=== PATIENT | male | born 1975 | race Caucasian/White ===

== ENCOUNTER 2022-12-19 09:20 | Emergency (ER) | payer OTHER, SELFPAY ==
--- NOTE | 2022-12-19 09:22 | ED.NAVMDI ---
HPI - Nausea/Vomiting/Diarrhea General Chief complaint: Nausea/Vomiting/Diarrhea Stated complaint: Diarrhea;Abdominal pain;Nausea Source: patient and RN notes reviewed Mode of arrival: ambulatory Limitations: no limitations History of Present Illness HPI Narrative: Patient is a 47-year-old male who presents to the [facility] the history of with complaints of nausea and diarrhea. Patient states that he developed diarrhea starting Sunday morning. He states that the diarrhea started after he had a weekend trip in [place]. He does not believe he ate anything abnormal or that would cause his symptoms. he denies abdominal pain. States that he developed some nausea last night without emesis. Denies recent fever. States that he has been able to keep down fluids but has not had much of an appetite. He denies urinary symptoms. Denies GI history. Related Data Home Medications Medication Instructions Recorded Confirmed cholecalciferol (vitamin D3) 50 50 mcg PO DAILY 05/18/21 12/19/22 mcg (2,000 unit) capsule mecobalamin (vitamin B12) 1,000 1,000 mcg PO DAILY 05/18/21 12/21/21 mcg chewable tablet qhpcbsel-jsxyiqmd-jukup acid 400 1 tablet PO DAILY 05/18/21 12/19/22 mcg-vit K 20 mcg-lycop 300 mcg tablet (Men's Multivitamin) zinc gluconate 30 mg tablet 30 mg PO DAILY 05/18/21 12/19/22 magnesium 200 mg tablet 200 mg PO DAILY 12/21/21 12/21/21 Allergies Allergy/AdvReac Type Severity Reaction Status Date / Time No Known Allergies Allergy Verified 12/19/22 09:38 Review of Systems Review of Systems: CONSTITUTIONAL: Denies fever, chills, or sweats. EYES: Denies visual changes, redness, or discharge. ENT: Denies otalgia and sore throat CARDIOVASCULAR: Denies chest pain, palpitations, or edema. RESPIRATORY: Denies cough or dyspnea. GASTROINTESTINAL: Denies abdominal pain and vomiting, but reports nausea and diarrhea. GENITOURINARY: Denies dysuria or hematuria. SKIN: Denies rash or itching. MUSCULOSKELETAL: Denies back pain, joint pain, or myalgia. NEUROLOGIC: Denies headache, numbness, or weakness. Pertinent positives per HPI. [facility] Past Medical History Medical History Allergies B12 deficiency Depression Erectile dysfunction Excessive cerumen in left ear canal History of depression HTN (hypertension) Mixed hyperlipidemia Obesity, Class II, BMI 35-39.9 Primary hypertension Prostate cancer screening Seasonal allergies Situational anxiety Somnolence Vitamin D deficiency Family History Family History Father Diabetes mellitus Grandparent Diabetes mellitus Grandparent Heart disease Grandparent Asthma Cerebrovascular accident Son Type 1 diabetes Social History Social History Smoking status: Never smoker Alcohol intake: current Alcohol use details: socially Substance use: never Substance use type: does not use Spiritual care concerns: No Agree to blood products: Yes Comments At the time of my signature, I reviewed and agree with the nursing past medical, surgical, social, and family history. There is no relevant family history pertinent to the patient complaint. Exam Narrative: GENERAL: This is a well-nourished, well-developed patient, in no apparent distress. HEAD: normocephalic, atraumatic. EYES: Sclera clear/white. Vision is grossly intact. EARS: External ears normal. Hearing grossly intact. NOSE: External nose normal with no obvious nasal discharge, nares without redness, no rhinorrhea. THROAT: Mucous membranes moist, posterior pharynx clear. NECK: Neck supple, non-tender without lymphadenopathy, masses or thyromegaly. CARDIOVASCULAR: Regular rate and rhythm without murmurs, gallops, or rubs. RESPIRATORY: Clear to auscultation. Breath sounds equal bilaterally. No wheezes,
[2022-12-19 09:25] VITALS: BP 138/89; PULSE 110; RESP 16; TEMP 36.4; O2SAT 99
== END 2022-12-19 09:49 | disposition home or self-care (01) ==
PROVIDERS: Emergency Provider Nurse Practitioner; PCP Physician Assistant
DX: A08.4 Viral intestinal infection, unspecified (principal); I10 Essential (primary) hypertension; E78.2 Mixed hyperlipidemia; E55.9 Vitamin D deficiency, unspecified; E53.8 Deficiency of other specified B group vitamins; E66.9 Obesity, unspecified; Z68.34 Body mass index [BMI] 34.0-34.9, adult
CPT/HCPCS: 99213; G0463

== ENCOUNTER 2023-04-18 06:11 | Day surgery (SDC) | payer OTHER, SELFPAY ==
[2023-03-16 10:29] VITALS: BMI 35.0
[2023-04-02 12:56] VITALS: BMI 35.2
[2023-04-18 06:47] VITALS: BP 149/93; PULSE 93; RESP 14; TEMP 36.4; O2SAT 99
--- NOTE | 2023-04-18 07:11 | PM.HPGS ---
History of Present Illness History of Present Illness Consent: Risks, benefits, and alternatives have been discussed and questions answered. Patient agrees to proceed with procedure. Chief complaint: Neoplasm Screeing Narrative: Arcenio Coats is a 48 year old male presents for screening colonoscopy. Patient's current weight appetite and bowel movements are normal. Patient denies abdominal pain. Family history noncontributory. Patient denies any blood in his stools. Review of Systems Review of Systems: Review of Systems noncontributory. [facility] Past Medical History Medical History Allergies Depression Erectile dysfunction History of depression Mixed hyperlipidemia Primary hypertension Seasonal allergies Family History Family History (Updated 12/27/22 @ 09:06 by Harmony Irwin PA-C) Father , Stroke, 2021 Diabetes mellitus Grandparent Diabetes mellitus Grandparent Heart disease Grandparent Asthma Cerebrovascular accident Son Type 1 diabetes Social History Social History Smoking status: Never smoker Alcohol intake: current Alcohol use details: socially Substance use: never Substance use type: does not use Living arrangements: alone Spiritual care concerns: No Agree to blood products: Yes Meds Home Medications and Allergies Home Medications Medication Instructions Recorded Confirmed Type cholecalciferol (vitamin D3) 50 50 mcg PO DAILY 05/18/21 04/18/23 History mcg (2,000 unit) capsule mecobalamin (vitamin B12) 1,000 1,000 mcg PO DAILY 05/18/21 04/18/23 History mcg chewable tablet kryirect-zalgwjbn-ckphq acid 400 1 tablet PO DAILY 05/18/21 04/18/23 History mcg-vit K 20 mcg-lycop 300 mcg tablet (Men's Multivitamin) zinc gluconate 30 mg tablet 30 mg PO DAILY 05/18/21 04/18/23 History magnesium 200 mg tablet 200 mg PO DAILY 12/21/21 04/18/23 History lisinopril 10 mg tablet 10 mg PO DAILY #90 tabs 04/13/22 04/18/23 Rx tadalafil 20 mg tablet See Rx Instructions .Route 11/17/22 04/18/23 Rx .COMPLEX #6 tabs Allergies Allergy/AdvReac Type Severity Reaction Status Date / Time No Known Allergies Allergy Verified 04/18/23 06:42 Vital Signs Vital Signs - 24 hr 04/18/23 06:47 Temperature 97.5 F L Pulse Rate 93 Respiratory Rate 14 Blood Pressure 149/93 H Pulse Oximetry 99 Oxygen Delivery Room Air Exam Narrative: Physical exam reveals patient to be alert. Vital signs stable. HEENT exam is unremarkable. Patient is anicteric. Lungs are clear to auscultation and percussion. Heart is without murmur or extra sounds. Abdominal exam bowel sounds are present soft nontender with no hepatosplenomegaly. Digital external rectal exam normal. Assessment and Plan Assessment and plan (1) Encounter for screening colonoscopy: Code(s): Z12.11 - Encounter for screening for malignant neoplasm of colon Status: Acute Assessment and Plan: Presents for initial screening colonoscopy. He appears to be at average risk for colon polyps.
--- NOTE | 2023-04-18 07:32 | P.PNAN_ITS ---
Anes - Initial Pre Proc Eval Procedure: Operation Date: 04/18/23 08:00 Proposed Procedures p Colonoscopy - Yves Mejia MD Date/Time: 04/18/23 07:32 Surgeon: Yves Mejia MD Pre Op Diagnosis: Neoplasm Screeing Patient Data Age: 48 Gender: M Height: 1.83 m Weight: 113.85 kg Last Vital Signs Temp 36.4 C L 04/18/23 06:47 Pulse 93 04/18/23 06:47 Resp 14 04/18/23 06:47 BP 149/93 H 04/18/23 06:47 Pulse Ox 99 04/18/23 06:47 O2 Del Method Room Air 04/18/23 06:47 Allergies Allergy/AdvReac Type Severity Reaction Status Date / Time No Known Allergies Allergy Verified 04/18/23 06:42 Home Medications Medication Instructions Recorded Confirmed Type cholecalciferol (vitamin D3) 50 50 mcg PO DAILY 05/18/21 04/18/23 History mcg (2,000 unit) capsule mecobalamin (vitamin B12) 1,000 1,000 mcg PO DAILY 05/18/21 04/18/23 History mcg chewable tablet fhmwwbxg-saaimnri-wxvzq acid 400 1 tablet PO DAILY 05/18/21 04/18/23 History mcg-vit K 20 mcg-lycop 300 mcg tablet (Men's Multivitamin) zinc gluconate 30 mg tablet 30 mg PO DAILY 05/18/21 04/18/23 History magnesium 200 mg tablet 200 mg PO DAILY 12/21/21 04/18/23 History lisinopril 10 mg tablet 10 mg PO DAILY #90 tabs 04/13/22 04/18/23 Rx tadalafil 20 mg tablet See Rx Instructions .Route 11/17/22 04/18/23 Rx .COMPLEX #6 tabs Patient hx anesthesia problems: none Family hx anesthesia problems: none Results Review: All pre-operative results and documents have been reviewed as part of the pre- operative evaluation. REPLACED BY [facility] Past Medical History Medical History Allergies Depression Erectile dysfunction History of depression Mixed hyperlipidemia Primary hypertension Seasonal allergies Family History Family History Father , Stroke, 2021 Diabetes mellitus Grandparent Diabetes mellitus Grandparent Heart disease Grandparent Asthma Cerebrovascular accident Son Type 1 diabetes Social History Social History Smoking status: Never smoker Alcohol intake: current Alcohol use details: socially Substance use: never Substance use type: does not use Living arrangements: alone Spiritual care concerns: No Agree to blood products: Yes Anes - Eval Final PreProcedure Day of Procedure 04/18/23 07:32 Patient weight: obese Heart: regular rate and rhythm Lungs: clear to auscultation Airway: Mallampati scale class II Neurological: alert and oriented Last oral intake: >/= 8 hours ASA classification: III Emergent: no Anesthetic plan: proceed Anesthesia type and monitoring: general GIVS and standard monitoring Results Review: All pre-operative results and documents have been reviewed as part of the pre- operative evaluation. Informed Consent: The patient's anesthetic plan and its attendant risks and benefits were discussed with the patient/family/POA. Questions were solicited and answers provided to the satisfaction of the patient/family/POA.
[2023-04-18] MEDS: LACTATED RINGERS 1,000 ML 150 ML IV CONT (07:35)
[2023-04-18 08:05] VITALS: BP 116/72; PULSE 79; RESP 16; O2SAT 100
[2023-04-18 08:15] VITALS: BP 124/82; PULSE 79; RESP 18; O2SAT 100
[2023-04-18 08:25] VITALS: BP 135/87; PULSE 85; RESP 20; O2SAT 100
--- NOTE | 2023-04-18 09:40 | WPDANESPN ---
Anes - Prog Note Post-Op Date/Time: 04/18/23 09:40 Cardiovascular status: normal Respiratory status: normal Airway patency: baseline Mental status: baseline Post-Op hydration status: normal Vital Signs: Last Vital Signs Temp 36.4 C L 04/18/23 06:47 Pulse 85 04/18/23 08:25 Resp 20 04/18/23 08:25 BP 135/87 04/18/23 08:25 Pulse Ox 100 04/18/23 08:25 O2 Del Method Room Air 04/18/23 08:25 Pain Score (VAS): 0 I/O: Intake & Output 04/17/23 04/18/23 04/18/23 23:59 07:59 15:59 Intake Total 700 Balance 700 Patient Feedback: Patient satisfied with anesthetic care.
== END 2023-04-18 08:35 | disposition home or self-care (01) ==
PROVIDERS: PCP Physician Assistant; Visit Provider Internal Medicine Gastroenterology
PROC: 0DJD8ZZ Inspection of Lower Intestinal Tract, Via Natural or Artificial Opening Endoscopic (ICD-10-PCS; CPT 45378; principal; 2023-04-18 08:00)
DX: Z12.11 Encounter for screening for malignant neoplasm of colon (principal); K64.8 Other hemorrhoids
CPT/HCPCS: 45378

== ENCOUNTER 2024-04-21 08:23 | Emergency (ER) | payer OTHER, SELFPAY ==
[2024-04-21 08:34] VITALS: BP 145/82; PULSE 103; RESP 16; TEMP 36.9; O2SAT 98
--- NOTE | 2024-04-21 08:47 | ED.GENADULT ---
HPI - General Adult General Chief complaint: Upper Respiratory Infection Stated complaint: Cough/Sore Throat Time Seen by Provider: 04/21/24 08:47 Source: patient, RN notes reviewed and old records reviewed Mode of arrival: ambulatory Limitations: no limitations History of Present Illness HPI narrative: 49 year old male who presents to [facility] care with complaints of sore throat for the past 5 days with intermittent cough which is productive, Patient reports that he has not had any known fevers. Patient reports no ear pain, denies any body aches or headaches, denies any nausea or vomiting or diarrhea.Patient has been taking Mucinex, DayQuil and Ibuprofen for his symptoms. MD complaint: sore throat, productive cough Onset (ago): day(s) (5) Severity: moderate Treatments prior to arrival: NSAID and other (Mucinex, DayQuil) Related Data Home Medications ?Medication ?Instructions ?Recorded ?Confirmed ?Last Taken ?Type cholecalciferol (vitamin D3) 50 50 mcg PO DAILY 05/18/21 04/21/24 04/14/23 History mcg (2,000 unit) capsule mecobalamin (vitamin B12) 1,000 1,000 mcg PO DAILY 05/18/21 04/21/24 04/15/23 History mcg chewable tablet sdfbdgmr-llitshfm-rqybf acid 400 1 tablet PO DAILY 05/18/21 04/21/24 04/15/23 History mcg-vit K 20 mcg-lycop 300 mcg tablet (Men's Multivitamin) zinc gluconate 30 mg tablet 30 mg PO DAILY 05/18/21 04/21/24 04/15/23 History Allergies Allergy/AdvReac Type Severity Reaction Status Date / Time No Known Allergies Allergy Verified 04/21/24 08:34 Review of Systems Review of Systems: CONSTITUTIONAL: Denies malaise, chills, sweats, or fever. EYES: Denies visual changes, redness, or discharge. ENT: Reports rhinorrhea, congestion, sinus pain, no otalgia and positive for sore throat. CARDIOVASCULAR: Denies chest pain, palpitations, or edema. RESPIRATORY: Reports productive cough.? Denies dyspnea. GASTROINTESTINAL: Denies abdominal pain, nausea, vomiting, diarrhea SKIN: Denies rash or itching. MUSCULOSKELETAL: Denies myalgia. NEUROLOGIC: Denies headache. All systems reviewed & are unremarkable except as noted in HPI and below PMFSH Past Medical History Medical History Mixed hyperlipidemia Seasonal allergies History of depression Primary hypertension Depression Allergies Erectile dysfunction Family History Family History Father , Stroke, 2021 Diabetes mellitus Grandparent Diabetes mellitus Grandparent Heart disease Grandparent Asthma Cerebrovascular accident Son Type 1 diabetes Social History Social History Smoking status: Never smoker Alcohol intake: current Alcohol use details: socially Substance use: never Substance use type: does not use Living arrangements: alone Spiritual care concerns: No Agree to blood products: Yes Comments At time of signature, agree with nursing past medical, surgical, social and family history. There is no relevant family history pertinent to the presenting complaint Exam Narrative: GENERAL: Well-appearing, well-nourished, and in no acute distress. HEAD: Normocephalic EYES: PERRLA, conjunctivae clear ENT: Nares clear, turbinates edematous and erythematous, clear discharge. Mucous membranes moist. TM pearly junior with dull light reflex bilaterally; no tragal tenderness. Oropharynx erythematous without lesions. Tonsils red enlarged and with white exudate, no drooling, no hoarseness, no trismus, uvula midline.some post nasal drainage NECK: Supple. lymphadenopathy CHEST: Clear to auscultation, breath sounds equal. No wheezing, rhonchi, rales, or stridor. No respiratory distress, speaks in full sentences.productive cough. SAO2 98% on room air HEART: Regular rate and rhythm. No murmur heard. SKIN: Warm, dry, no rash NEURO: Alert and oriented x3. PSYCH: Normal mood and affect Course Course Emergency Course: Patient is aware of diagnosis, understands and agrees to treatment plan.? Anticipatory guidance given.? Patient agrees to follow-up as directed and is aware of reasons to seek care at the emergency department. Portions of this record may have been created with voice recognition software Level of Care: Express Care Visit Vital Signs Vital signs: Vital Signs Temperature 36.9 C 04/21/24 08:34 Pulse Rate 103 H 04/21/24 08:34 Respiratory Rate 16 04/21/24 08:34 Blood Pressure 145/82 H 04/21/24 08:34 Pulse Oximetry 98 04/21/24 08:34 Temperature 36.9 C 04/21/24 08:34 Pulse Rate 103 H 04/21/24 08:34 Respiratory Rate 16 04/21/24 08:34 Blood Pressure 145/82 H 04/21/24 08:34 Pulse Oximetry 98 04/21/24 08:34 Reviewed Medical Decision Making Differential Diagnosis Differential Diagnosis: URI, cough, pharyngitis, strep pharyngitis, tonsillitis Medical Records Medical records reviewed: Yes I reviewed the external patient's medical records. Vital Signs Vital Signs: Vital Signs Temperature 36.9 C 04/21/24 08:34 Pulse Rate 103 H 04/21/24 08:34 Respiratory Rate 16 04/21/24 08:34 Blood Pressure 145/82 H 04/21/24 08:34 Pulse Oximetry 98 04/21/24 08:34 Temperature 36.9 C 04/21/24 08:34 Pulse Rate 103 H 04/21/24 08:34 Respiratory Rate 16 04/21/24 08:34 Blood Pressure 145/82 H 04/21/24 08:34 Pulse Oximetry 98 04/21/24 08:34 Lab Data Lab results reviewed: Yes I reviewed the patient's lab results. Lab results narrative: strep screen negative, culture sent Labs: Lab Results 04/21/24 Range/Units 08:58 POC Grp A Strep Screen Negative (Negative) Critical Care Time Critical Care Time Critical Care Time: No Discharge Plan Discharge Clinical Impression: Tonsillitis Patient Disposition: Home, Self-Care Condition: Stable Instructions: Antibiotic Form, Tonsillitis (ED) Additional Instructions: Increase fluids especially juices and water Tgaj-oot-kpjpfij cough and cold medicine of your choice for your symptoms Zyrtec Claritin or Irish daily Tylenol or ibuprofen for any fever pain heat to the face 20-30 minutes 4-6 times a day for pain Salt water gargles, throat lozenges or throat sprays as desired Antibiotic as directed--finished the medication . Take the entire course of antibiotics. Throw away your current toothbrush and begin using a new toothbrush in 48 hours in order to prevent re-infection. Sanitize all reusable water bottles . Do not share items with others. Salt water gargles may alleviate some of the throat discomfort. Your strep test today was negative. A throat culture will be sent to the laboratory for further testing. If your symptoms persist, change or worsen significantly before you can contact your personal physician then please, without delay, go to the emergency department for further evaluation. Follow-up with PCP in 7-10 days or sooner if needed Follow up with PCP soon in regards to your blood pressure which is elevated above threshold for referral. Blood pressure above 120/80 may indicate pre-hypertension. 145/82 Patient Language: Azeri Prescriptions: New amoxicillin 500 mg capsule 500 mg PO Q8H Qty: 30 0RF Rx Instructions: take all of prescription No Action Men's Multivitamin 400-20-300 mcg tablet 1 tablet PO DAILY cholecalciferol (vitamin D3) 50 mcg (2,000 unit) capsule 50 mcg PO DAILY mecobalamin (vitamin B12) 1,000 mcg tablet,chewable 1,000 mcg PO DAILY zinc gluconate 30 mg tablet 30 mg PO DAILY tadalafil 20 mg tablet See Rx Instructions .ROUTE .COMPLEX Qty: 6 3RF Dose Instruction: TAKE 1/2 TO 1 TABLET BY MOUTH 1 HOUR BEFORE SEXUAL ACTIVITY NEEDED. DO NOT REPEAT DOSE IN 24 HOURS Rx Instructions: TAKE 1/2 TO 1 TABLET BY MOUTH 1 HOUR BEFORE SEXUAL ACTIVITY NEEDED. DO NOT REPEAT DOSE IN 24 HOURS Follow-up/Referrals: Salina River MD [Primary Care Provider] - Time of Disposition: 09:03 Quality [place]ina Coma Scale Eyes: Open Verbal: Oriented and Alert Motor: Follows Commands [place] Coma Total Score: 15
[2024-04-21 09:00] LABS: EDSTREPNEGPOS1 Negative (Negative)
== END 2024-04-21 09:07 | disposition home or self-care (01) ==
PROVIDERS: Emergency Provider Registered Nurse; PCP Family Medicine
DX: J03.90 Acute tonsillitis, unspecified (principal); E78.2 Mixed hyperlipidemia; I10 Essential (primary) hypertension
CPT/HCPCS: 87081; 87880; 99213; G0463

== ENCOUNTER 2025-01-22 18:58 | Emergency (ER) | payer OTHER, SELFPAY ==
[2025-01-22 19:06] VITALS: BP 148/83; PULSE 89; RESP 16; TEMP 36.1; O2SAT 98
== END 2025-01-22 21:34 | disposition left against medical advice (07) ==
LOC: ANHED 21:49
DX: R10.32 Left lower quadrant pain (principal)
CPT/HCPCS: 99199